=== PATIENT | male | born 1990 | race Caucasian/White ===

== ENCOUNTER 2021-01-15 21:42 | Emergency (ER) | payer OTHER, SELFPAY ==
[2021-01-15] VITALS (8 sets, daily range): BP systolic 126–135; BP diastolic 81–90; PULSE 72–87; RESP 16; TEMP 36.3; O2SAT 99–100
--- NOTE | ~2021-01-15 | US_ITS ---
EXAMINATION: US scrotum doppler DATE: 01/15/2021 22:59 INDICATION: Left testicular pain and swelling TECHNIQUE: Testicular sonogram utilizing grayscale and Doppler COMPARISON: None. FINDINGS: The right testis measures 4.2 x 2.5 x 2.5 cm. The left testis measures 4.0 x 3.3 x 2.6 cm. There is increased vascular flow to both testicles. The right epididymis is normal with normal vascul ar flow. The left epididymis is normal with normal vascular flow. There is no varicocele or hydrocele . IMPRESSION: 1. Hypervascularity of the testicles which could reflect orchitis. Reviewed, dictated and finalized at location A.
[2021-01-15] MEDS: MORPHINE SULFATE (*CRX) 4 MG/ML INJ IV PUSH (22:08)
--- NOTE | 2021-01-15 22:46 | ED.MALEGU ---
HPI - Male Genitourinary General Chief complaint: Urogenital-Male Stated complaint: testicular torsion? Time Seen by Provider: 01/15/21 21:51 History of Present Illness HPI Narrative: Patient is a 30-year-old male who presents ER with left testicular pain. Began yesterday. Intermittent. Increased today. Very tender around the left testicle and spermatic cord. No swelling in the groin. No fevers chills or sweats. No dysuria or urinary frequency urgency. Sexually active with one partner for the last year and a half. Not concern for sexual transmitted infection. Related Data Allergies Allergy/AdvReac Type Severity Reaction Status Date / Time No Known Allergies Allergy Verified 01/15/21 21:58 Review of Systems Review of Systems: All systems reviewed & are unremarkable except as noted in HPI and below Constitutional: Constitutional: Denies chills, Denies fever(s) and Denies weakness Gastrointestinal: Gastrointestinal: Denies abdominal pain, Denies nausea and Denies vomiting Genitourinary: Genitourinary: Denies hematuria, Denies oliguria, Denies genital lesions, Denies dysuria, Denies penile discharge, Reports testicular pain and Denies urinary frequency PMFSH Past Medical History Medical History (Updated 01/16/21 @ 00:16 by Walt Jett MD) Healthy adult male Surgical History Surgical History (Updated 01/15/21 @ 22:49 by Walt Jett MD) No history of previous surgery Social History Social History (Updated 01/15/21 @ 22:49 by Walt Jett MD) Smoking status: Never smoker Exam Narrative: Exam Narrative: GENERAL: Well-appearing, well-nourished, and in no acute distress. HEAD: Normocephalic, atraumatic. CHEST: Clear to auscultation. No respiratory distress. HEART: Regular rate and rhythm. Normal peripheral pulses. ABDOMEN: Soft, nontender, nondistended. : Normal external genitalia with circumcised penis. No urethral discharge. Tender palpation about the left testicle as well as proximal spermatic cord/epididymis. No right-sided tenderness. No inguinal hernia palpated bilaterally. EXTREMITIES: Normal range of motion. No edema. NEURO: Alert and oriented x3. PSYCH: Normal mood and affect. Course Course Emergency Course: Pain improved with Toradol and morphine. Informed of results. Discharge home. Will give ceftriaxone and doxycycline. Recommend follow-up with urology if pain persisting. Reports he has been vaccinated for mumps. No other concerns. Vital Signs Vital signs: Vital Signs Temperature 97.3 F L 01/15/21 21:53 Pulse Rate 87 01/15/21 21:53 Blood Pressure 135/83 01/15/21 21:53 Temperature 97.3 F L 01/15/21 21:53 Pulse Rate 72 01/15/21 23:10 Respiratory Rate 16 01/15/21 23:10 Blood Pressure 126/86 01/15/21 23:10 Pulse Oximetry 100 01/15/21 23:10 MDM - Male Genitourinary Lab Data Labs: Lab Results 01/15/21 Range/Units 23:34 Urine Color Yellow (Yellow) Urine Appearance Clear (Clear) Urine pH 6.0 (5.0-9.0) Ur Specific [place] 1.012 (1.001-1.035) Urine Protein Negative (Negative) mg/dL Urine Glucose (UA) Negative (Negative) mg/dL Urine Ketones Negative (Negative) mg/dL Ur Blood (Man) Negative (Negative) Urine Nitrate Negative (Negative) Urine Bilirubin Negative (Negative) Urine Urobilinogen Negative (<2.0) mg/dL Leukocyte Esterase Rfl Negative (Negative) DOMI/UL Urine Characteristics Clear Imaging Data Radiologist's impression: ITS Impressions Scrotum Ultrasound 01/15/21 23:01 IMPRESSION: 1. Hypervascularity of the testicles which could reflect orchitis. Discharge Plan Discharge Clinical Impression: Acute orchitis Patient Disposition: Home, Self-Care Condition: Stable Instructions: Orchitis (ED) Additional Instructions: Return the ER if you have worsening pain, you have fever o
[2021-01-15] MEDS: KETOROLAC 30 MG/ML VIAL (*BKC) IV PUSH (23:34)
[2021-01-15 23:46] LABS: Add Urine Microscopic? NO; Appearance Urine Clear (Clear); Bilirubin Urine Negative (Negative); Blood Urine Negative (Negative); Color Urine Yellow (Yellow); Glucose Urine UA Negative (Negative); Ketones Urine Negative (Negative); Leukocyte Esterase Ur Negative LEU/UL (Negative); Nitrate Urine Negative (Negative); Protein Urine Negative (Negative); Specific Grav Ur 1.012 (1.001-1.035); Urobilinogen Urine Negative mg/dL (<2.0)
[2021-01-16] MEDS: DOXYCYCLINE HYCLATE 100 MG TABLET PO (00:38)
[2021-01-16] MEDS: cefTRIAXone 1 GM VIAL 0.5 GM IM (00:39)
[2021-01-16 00:51] VITALS: BP 123/73; PULSE 70; RESP 14; O2SAT 99
== END 2021-01-16 00:44 | disposition home or self-care (01) ==
PROVIDERS: Emergency Provider Emergency Medicine; PCP Family Medicine
DX: N45.2 Orchitis (principal)
CPT/HCPCS: 76870; 81003; 87491; 87591; 93976; 96372; 96374; 96375; 99284; A9270; J0696; J1885; J2270

== ENCOUNTER 2022-04-26 16:17 | Emergency (ER) | payer OTHER, SELFPAY ==
--- NOTE | ~2022-04-26 | XR_ITS ---
XR hand RT min 3V DATE: 04/26/2022 16:33 INDICATION: Fall off of ladder onto hand. Third and fourth metacarpal pain. TECHNIQUE: 3 views COMPARISON: None FINDINGS: No fracture or dislocation, periosteal reaction or bone destruction, joint space narrowing, erosive change or chondrocalcinosis. IMPRESSION: Negative Reviewed, dictated and finalized at location A. IMPRESSION: Negative
[2022-04-26 16:21] VITALS: BP 134/79; PULSE 57; RESP 16; TEMP 36.4; O2SAT 100
--- NOTE | 2022-04-26 16:52 | ED.UPPEXIN ---
HPI - Extremity Injury (Upper) General Chief Complaint: Extremity Injury, Upper Stated Complaint: right hand injury Time Seen by Provider: 04/26/22 16:52 Source: patient, RN notes reviewed and old records reviewed Mode of arrival: ambulatory Limitations: no limitations History of Present Illness HPI narrative: 32-year-old male presents here with complaints right hand pain after falling on his hand 2 days ago. Has been taking ibuprofen and icing it. MD complaint: injury to: right and hand Related Data Home Medications Medication Instructions Recorded Confirmed omeprazole 20 mg tablet,delayed 20 mg PO BID 04/26/22 04/26/22 release Allergies Allergy/AdvReac Type Severity Reaction Status Date / Time No Known Allergies Allergy Verified 04/26/22 16:29 Review of Systems Review of Systems: All systems reviewed & are unremarkable except as noted in HPI and below Constitutional: Constitutional: Reports no additional constitutional complaints, Denies chills and Denies fever(s) Eyes: Eyes: Reports no additional eye complaints ENT: Reports system reviewed and no additional complaints, except as documented Cardiovascular: Cardiovascular: Reports no additional cardiovascular complaints Respiratory: Respiratory: Reports no additional respiratory complaints Gastrointestinal: Gastrointestinal: Reports no additional gastrointestinal complaints Musculoskeletal: Musculoskeletal: Reports as per HPI Integumentary/Breasts: Skin/Breast: Reports system reviewed and no additional complaints, except as docu Neurologic: Reports system reviewed and no additional complaints, except as documented Psychiatric: Psychiatric: Reports no additional psychiatric complaints Allergic/Immunologic: Allergic/Immunologic: Reports no additional allergic/immunologic complaints [facility] Past Medical History Medical History (Updated 04/26/22 @ 17:07 by Joana Mccoy APRN) Healthy adult male Surgical History Surgical History No history of previous surgery Social History Social History Smoking status: Never smoker Comments At the time of my signature, I reviewed and agree with the nursing past medical, surgical, social, and family history. There is no relevant family history pertinent to the patient complaint. Exam Const: General: healthy appearing, no acute distress, alert and well nourished Nutritional Appearance: well nourished Orientation/consciousness: patient oriented x3 Limitations: no limitations HENMT: Head: normal to inspection Ears: external ears normal, TM's normal bilaterally and EAC's normal Eyes: General: appearance normal, both eyes and all related structures Conjunctivae: conjunctivae normal Pupils: Equal, round and reactive pupils present Neck: Neck: normal visual inspection, no lymphadenopathy and no meningeal signs Chest: Chest palpation & inspection: normal inspection of the chest Resp: Effort & Inspection: normal respiratory effort and no use of accessory muscles Auscultation: clear to auscultation bilaterally, no crackles, no rales, no rhonchi and no wheezes Cardio: Rate: regular rate Rhythm: regular rhythm Back/Spine/Pelvis: Cervical Spine: normal cervical lordosis Thoracic/Lumbar Spine: thoracic and lumbar spine normal to inspection Skin: General skin exam: normal color Rashes: no rashes Wounds: no wounds Neuro: General: patient oriented x3, moves all extremities, no meningeal signs and no focal motor deficits Cranial nerves: Yes Equal, round and reactive pupils present Speech: normal speech Gait exam (Neuro): Normal gait present Extrem: General: normal to inspection, full ROM and capillary refill normal Right upper extremity: Extremity exam: right hand normal capillary refill, tenderness of the dorsal hand over the 3rd metacarpal and over the 4th metacarpal and swelling of the dorsa
== END 2022-04-26 17:14 | disposition home or self-care (01) ==
PROVIDERS: Emergency Provider Nurse Practitioner; PCP Physician Assistant
DX: S63.91XA Sprain of unspecified part of right wrist and hand, initial encounter (principal); S66.911A Strain of unspecified muscle, fascia and tendon at wrist and hand level, right hand, initial encounter; W19.XXXA Unspecified fall, initial encounter
CPT/HCPCS: 73130; 99213; G0463